=== PATIENT | female | born 1945 | race Caucasian/White ===

== ENCOUNTER → 2016-11-30 | Outpatient (CLI) | payer MEDICARE ==
[~2016-11-30] MED LIST: REGADENOSON INJ 0.4 MG/5 ML DISP.SYRIN IV ONE
--- NOTE | 2016-11-30 19:19 | DRAGON STRESS TEST REPORT ---
Intravenous Lexiscan Cardiolite stress test using single photon emmision computerized tomography. Date of procedure: 11/30/2016. Ordering Provider: Dr. Aimee Allred. Primary Care Physician: Dr. Angela Wilcox. Indication: Syncope. Coronary risk factors: Age, abnormal EKG, hypertension, dyslipidemia, family history of coronary artery disease, and tobacco abuse disorder. Resting EKG: Sinus Rhythm. T inversion in leads V1 to V4. Stress EKG: No changes of ischemia. The patient had no chest pain or discomfort, and there were no arrhythmias seen. The patient had transient shortness of breath which subsided after she drank Pepsi. Reason for termination: Protocol. Conclusions: Normal EKG and hemodynamic response to IV Lexiscan. Nuclear data: At rest the patient was given 9.11 millicuries of technetium 99m sestamibi injected intravenously. As per protocol rest non gated SPECT images were obtained. Subsequently the patient was given intravenous Lexiscan at a dose of 0.4 mg in 5 mL intravenously, followed by flush with normal saline. Subsequently the stress dose of 32.3 millicuries of technetium 99m sestamibi was injected intravenously. As per protocol stress gated images were obtained. Nuclear interpretation: Review of images showed that there is significant motion artifact. In spite of this all segments of the myocardium had normal perfusion at rest, and normal perfusion post stress with IV Lexiscan. All segments of the myocardium had normal motion, contraction, and thickening by gated study. T. I D. ratio was normal at 1.18. Computer read rest, and stress left ventricular ejection fraction were 71 %, and 73 %, respectively. Conclusion: 1. There is no scintigraphic evidence of Lexiscan induced myocardial ischemia. 2. There is no scintigraphic evidence of myocardial infarction/scar. Recommendations: 1.Aggressive risk factor modification, and treating the underlying co- morbidities. 2. Correlate Clinically. MTDD
== END ==
LOC: RAD 07:24
PROVIDERS: ATTEND Specialist
DX: R55 Syncope and collapse (principal)
CPT/HCPCS: 93017; 78452; A9500; J2785; Q9969

== ENCOUNTER 2016-12-05 15:58 | Emergency (ER) | payer MEDICARE ==
--- NOTE | 2016-12-05 16:18 | ER Document Report ---
ED Medical Screen (RME) - General Chief Complaint: Laceration Stated Complaint: LACERATION TO RIGHT SECOND DIGIT Time seen by provider: 16:16 Mode of Arrival: Wheelchair Information source: Patient Notes: 71-year-old female presents to ED for laceration to the right index finger. Her tetanus shot is up-to-date. No active bleeding at this moment. Slipped when she was trying to remove candle wax. I have greeted and performed a rapid initial assessment of this patient. A comprehensive ED assessment and evaluation of the patient, analysis of test results and completion of medical decision making process will be conducted by an additional ED providers. TRAVEL OUTSIDE OF THE [place] IN LAST 30 DAYS: No - Related Data Allergies/Adverse Reactions: No Known Allergies Allergy (Verified 10/22/16 12:29) Past Medical History - Past Medical History Cardiac Medical History: Reports: Hx Coronary Artery Disease, Hx Hypercholesterolemia, Hx Hypertension Denies: Hx Heart Attack Musculoskeltal Medical History: Reports Hx Arthritis, Reports Hx Musculoskeletal Trauma - right arm Psychiatric Medical History: Reports: Hx Anxiety, Hx Depression Past Surgical History: Reports: Hx Adenoidectomy, Hx Hysterectomy, Hx Oral Surgery - wisdom teeth, Hx Orthopedic Surgery - left shoulder, Hx Tonsillectomy , Other - eye - Immunizations Hx Diphtheria, Pertussis, Tetanus Vaccination: Yes Physical Exam - Vital signs Vitals: Temp Pulse Resp BP Pulse Ox 97.9 F 74 16 174/96 H 97 12/05/16 16:13 12/05/16 16:13 12/05/16 16:13 12/05/16 16:13 12/05/16 16:13 Course - Vital Signs Vital signs: Temp Pulse Resp BP Pulse Ox 97.9 F 74 16 174/96 H 97 12/05/16 16:13 12/05/16 16:13 12/05/16 16:13 12/05/16 16:13 12/05/16 16:13
[2016-12-05] MEDS ORDERED: LIDOCAINE 1% INJ-PF (10 MG/ML) 30 ML SDV INJ ONE (18:38)
--- NOTE | 2016-12-05 19:51 | ER Document Report ---
ED General - General Chief Complaint: Laceration Stated Complaint: LACERATION TO RIGHT SECOND DIGIT Time seen by provider: 18:30 Mode of Arrival: Wheelchair Information source: Patient Notes: 71-year-old female was working in her kitchen and cut herself with a knife on her right index finger roughly 1:00 this afternoon. She reports she had copious bleeding at the time but it seems to stop with direct pressure now. She states she did not injure anything else. She does not note any difficulty with the use of her finger or numbness to the finger. She reports taking aspirin but no other anticoagulation Physical Exam: General: Alert, appears well. HEENT: Normocephalic. Atraumatic. PERRLA. Extraocular movements intact. Oropharynx clear. Neck: Supple. Non-tender. Respiratory: No respiratory distress. Clear and equal breath sounds bilaterally. Cardiovascular: Regular rate and rhythm. Abdominal: Normal Inspection. Soft, non-tender. No distension. Normal Bowel Sounds. Extremities: Moves all four extremities. Right index finger has a 4 cm flap-type laceration over the proximal phalanx to the thumb side. She demonstrates full active range of motion at the MCP PIP and DIP joints. She has brisk upper refill the finger. There is ecchymosis and swelling proximal to the laceration site. Other fingers have good range of motion without discomfort she has 2+ radial and ulnar pulses. Neurological: Speech clear mentation normal Psychological: Normal affect. Normal Mood. Skin: Warm. Dry. Normal color. TRAVEL OUTSIDE OF THE [place] IN LAST 30 DAYS: No - Related Data Allergies/Adverse Reactions: No Known Allergies Allergy (Verified 10/22/16 12:29) Past Medical History - General Information source: Patient - Social History Smoking Status: Current Every Day Smoker Family History: CAD Patient has suicidal ideation: No Patient has homicidal ideation: No - Past Medical History Cardiac Medical History: Reports: Hx Coronary Artery Disease, Hx Hypercholesterolemia, Hx Hypertension Denies: Hx Heart Attack Renal/ Medical History: Denies: Hx Peritoneal Dialysis Musculoskeltal Medical History: Reports Hx Arthritis, Reports Hx Musculoskeletal Trauma - right arm Psychiatric Medical History: Reports: Hx Anxiety, Hx Depression Past Surgical History: Reports: Hx Adenoidectomy, Hx Hysterectomy, Hx Oral Surgery - wisdom teeth, Hx Orthopedic Surgery - left shoulder, Hx Tonsillectomy , Other - eye - Immunizations Hx Diphtheria, Pertussis, Tetanus Vaccination: Yes Review of Systems - Review of Systems Constitutional: denies: Chills, Fever EENT: denies: Ear pain, Throat pain Cardiovascular: denies: Chest pain Respiratory: denies: Cough, Short of breath Gastrointestinal: denies: Nausea, Vomiting Genitourinary: denies: Burning, Dysuria Female Genitourinary: Post menopausal Musculoskeletal: denies: Back pain Hematologic/Lymphatic: denies: Swollen glands Neurological/Psychological: denies: Weakness, Numbness Physical Exam - Vital signs Vitals: Temp Pulse Resp BP Pulse Ox 97.9 F 74 16 174/96 H 97 12/05/16 16:13 12/05/16 16:13 12/05/16 16:13 12/05/16 16:13 12/05/16 16:13 Course - Re-evaluation Re-evalutation: 12/05/16 19:52 Laceration sutured without difficulty. Patient will return to emergency department or her provider in one week for suture removal - Vital Signs Vital signs: Temp Pulse Resp BP Pulse Ox 97.9 F 74 16 174/96 H 97 12/05/16 16:15 12/05/16 16:15 12/05/16 16:15 12/05/16 16:15 12/05/16 16:15 Procedures - Laceration/Wound Repair Right Finger 2nd digit Time completed: 19:30 Wound length (cm): 4 Wound's Depth, Shape: Flap Laceration pre-procedure: Betadine prep applied, Sterile drapes applied Anesthetic type: 1% Lidocaine Volume Anesthetic (mLs): 2 Wound explored: Clean Irrigated w/ Saline (mLs): 50 Wound Debrided: Minimal Suture Size/Type: 4:0 Number of Sutures: 8 Layer Closure?: No Post-procedure wound care: Sterile dressing applied Post-procedure NV exam normal: No Complications: No Notes: 12/05/16 19:51 This is a flap-type laceration which was deeper more proximally. I believe this transected one of the veins accounting for the considerable bleeding but there was no pulsatile bleeding to suggest arterial involvement. Base of the wound was identified and no tendon or bony involvement was present. Wound was close enough to the digital nerve and elected to provide local anesthetic. Patient had persistent numbness to the finger after procedure which I think is due to the anesthesia. Patient had good hemostasis postprocedure and no complications Discharge - Discharge Clinical Impression: Laceration Condition: Stable Disposition: HOME, SELF-CARE Additional Instructions: Laceration Care Your laceration has been sutured to keep the skin edges aligned during healing. The time of suture removal depends on the nature and location of your cut. Please follow the care instructions the doctor has outlined for you and return for further care, according to the schedule you've been given. Keep the wound and dressing clean. Unless you were told otherwise, you may shower daily, blotting the wound dry with a clean, unused towel. At other times, If the dressing gets wet or blood soaked, remove it and blot the wound dry, then reapply a new dressing. Unless you were instructed otherwise, dressings should be changed at least daily. If any signs of infection occur (swelling, redness, increasing tenderness, red streaks, tender lumps in the armpit or groin above the laceration, or fever) , see the doctor immediately. Return to emergency department or see your doctor in 1 week for suture removal
[2016-12-05 20:33] VITALS: BP 179/104
== END 2016-12-05 20:36 | disposition home or self-care (01) ==
LOC: ER 15:58
PROC: 0HQFXZZ Repair Right Hand Skin, External Approach (ICD-10-PCS; principal; 2016-12-05)
DX: S61.210A Laceration without foreign body of right index finger without damage to nail, initial encounter (principal); W26.0XXA Contact with knife, initial encounter; F17.200 Nicotine dependence, unspecified, uncomplicated; I25.10 Atherosclerotic heart disease of native coronary artery without angina pectoris; E78.00 Pure hypercholesterolemia, unspecified; I10 Essential (primary) hypertension; Z90.710 Acquired absence of both cervix and uterus
CPT/HCPCS: 99282

== ENCOUNTER 2016-12-12 11:58 | Emergency (ER) | payer MEDICARE ==
--- NOTE | 2016-12-12 12:40 | ER Document Report ---
ED Medical Screen (RME) - General Chief Complaint: Suture Removal Stated Complaint: STITCH REMOVAL Notes: here for suture removal. lac on 12/05 I have greeted and performed a rapid initial assessment of this patient. A comprehensive ED assessment and evaluation of the patient, analysis of test results and completion of the medical decision making process will be conducted by additional ED providers. TRAVEL OUTSIDE OF THE [place] IN LAST 30 DAYS: No - Related Data Allergies/Adverse Reactions: No Known Allergies Allergy (Verified 12/12/16 12:38) Past Medical History - Past Medical History Cardiac Medical History: Reports: Hx Coronary Artery Disease, Hx Hypercholesterolemia, Hx Hypertension Denies: Hx Heart Attack Renal/ Medical History: Denies: Hx Peritoneal Dialysis Musculoskeltal Medical History: Reports Hx Arthritis, Reports Hx Musculoskeletal Trauma - right arm Psychiatric Medical History: Reports: Hx Anxiety, Hx Depression Past Surgical History: Reports: Hx Adenoidectomy, Hx Hysterectomy, Hx Oral Surgery - wisdom teeth, Hx Orthopedic Surgery - left shoulder, Hx Tonsillectomy , Other - eye - Immunizations Hx Diphtheria, Pertussis, Tetanus Vaccination: Yes Physical Exam - Vital signs Vitals: Temp Pulse Resp BP Pulse Ox 98.1 F 80 16 157/86 H 95 12/12/16 12:25 12/12/16 12:25 12/12/16 12:25 12/12/16 12:25 12/12/16 12:25 Course - Vital Signs Vital signs: Temp Pulse Resp BP Pulse Ox 98.1 F 80 16 157/86 H 95 12/12/16 12:25 12/12/16 12:25 12/12/16 12:25 12/12/16 12:25 12/12/16 12:25
--- NOTE | 2016-12-12 14:08 | ER Document Report ---
HPI - HPI Patient complains to provider of: suture removal Onset: Other - 7 datys Quality of pain: No pain Pain Level: 0 Context: 71 yo female here for suture removal right index finger. Sutured 1 week ago and told to return to get the stitches out. NO problems Associated Symptoms: None Exacerbated by: Denies Relieved by: Denies Similar symptoms previously: No Recently seen / treated by doctor: Yes - ROS ROS below otherwise negative: Yes Systems Reviewed and Negative: Yes All other systems reviewed and negative - DERM Skin Color: Normal Past Medical History - General Information source: Patient - Social History Smoking Status: Never Smoker Chew tobacco use (# tins/day): No Frequency of alcohol use: None Drug Abuse: None Family History: CAD Patient has suicidal ideation: No Patient has homicidal ideation: No - Past Medical History Cardiac Medical History: Reports: Hx Coronary Artery Disease, Hx Hypercholesterolemia, Hx Hypertension Renal/ Medical History: Denies: Hx Peritoneal Dialysis Musculoskeltal Medical History: Reports Hx Arthritis, Reports Hx Musculoskeletal Trauma - right arm Psychiatric Medical History: Reports: Hx Anxiety, Hx Depression Past Surgical History: Reports: Hx Adenoidectomy, Hx Hysterectomy, Hx Oral Surgery - wisdom teeth, Hx Orthopedic Surgery - left shoulder, Hx Tonsillectomy , Other - eye - Immunizations Hx Diphtheria, Pertussis, Tetanus Vaccination: Yes Vertical Provider Document - CONSTITUTIONAL Agree With Documented VS: Yes Exam Limitations: No Limitations General Appearance: No Apparent Distress - INFECTION CONTROL TRAVEL OUTSIDE OF THE [place] IN LAST 30 DAYS: No - HEENT HEENT: Normocephalic - RESPIRATORY O2 Sat by Pulse Oximetry: 95 - MUSCULOSKELETAL/EXTREMETIES Musculoskeletal/Extremeties: MAEW, FROM, Eccymosis Notes: healed v cut dorsal right index finger-proximal - NEURO Level of Consciousness: Awake, Alert Motor/Sensory: No Motor Deficit, No Sensory Deficit - DERM Integumentary: Warm, Dry, Laceration - see above Course - Re-evaluation Re-evalutation: 12/12/16 14:07 Suture removal with Steri-Strips to provide 3 more days of wound edge closure strength. 12/12/16 14:07 - Vital Signs Vital signs: Temp Pulse Resp BP Pulse Ox 98.1 F 80 16 157/86 H 95 12/12/16 12:25 12/12/16 12:25 12/12/16 12:25 12/12/16 12:25 12/12/16 12:25 Discharge - Discharge Clinical Impression: right index finger suture removal, steri stip for strength Condition: Good Disposition: HOME, SELF-CARE Instructions: Care of Steri-Strip Closure ([facility]) Additional Instructions: keep the strips dry and intact for 3 more days to er any concerns Referrals: PRISCILA ADAMS MD [Primary Care Provider] - Follow up as needed
[2016-12-12 15:00] VITALS: BP 168/88
== END 2016-12-12 14:50 | disposition home or self-care (01) ==
LOC: ER 11:58
DX: Z48.02 Encounter for removal of sutures (principal)

== ENCOUNTER → 2017-04-12 | Outpatient (CLI) | payer MEDICARE ==
--- NOTE | 2017-04-12 14:37 | RADIOLOGY REPORT (SQ) ---
EXAM DESCRIPTION: CT LUNG CANCER SCREENING COMPLETED DATE/TIME: 04/12/2017 1:28 pm REASON FOR STUDY: NICOTINE DEPENDENCE R26.0 ATAXIC GAIT Z72.0 TOBACCO USE F17.210 NICOTINE DEPEND ENCE, CIGARETTES, UNCOMPLICATED Has the patient had a Chest CT scan within the past year? No Was the patient offered tobacco cessation counseling? Yes Was the patient engaged in shared decision making for this test? Yes Does the patient have signs or symptoms of Lung Cancer? No Is the patient a smoker? Yes How many packs per year? 180 How many years since quitting smoking? Not applicable Patients age: 71 COMPARISON: None. TECHNIQUE: Low Dose CT scan performed of the chest without intravenous contrast for purposes of scre ening for lung cancer. Images reviewed with lung, soft tissue and bone windows. Reconstructed coron al and sagittal MPR images reviewed. All images stored on PACS. All CT scanners at this facility use dose modulation, iterative reconstruction, and/or weight based d osing when appropriate to reduce radiation dose to as low as reasonably achievable (ALARA). [facility]: Dose Right [facility]: CareDose [facility]: Dose Right [facility]: Teradose 4D [facility]: [employer] RADIATION DOSE: 1.94 mGy. . LIMITATIONS: No technical limitations. FINDINGS: LUNGS AND PLEURA: Benign calcified granuloma left upper lobe. No pleural effusions or c alcifications. No pneumothorax. Moderate obstructive lung disease with enlarged airspaces. HILAR AND MEDIASTINAL STRUCTURES: No identified masses. No abnormal nodes. HEART AND VASCULAR STRUCTURES: No aortic aneurysm. No pericardial effusion. No cardiac devices. CORONARY ARTERY CALCIFICATIONS: Mild to moderate calcifications. UPPER ABDOMEN: No significant findings. THYROID AND OTHER SOFT TISSUES: No masses. No adenopathy. BONY STRUCTURES: Old left 12th rib fracture. Mild upper endplate chronic appearing depression of T12 . OTHER: No other significant findings. IMPRESSION: NO SIGNIFICANT FINDING ON NON-CONTRASTED CHEST CT. NO OTHER CLINICALLY SIGNIFICANT/POTENTIALLY CLINICALLY SIGNIFICANT FINDINGS LUNGRADS: LUNGRADS: 1 NEGATIVE. NO NODULES, OR DEFINITELY BENIGN NODULES MODIFIER: NONE RECOMMENDATION: Continue annual screening with LDCT in 12 months. COMMENT: CRITERIA: No lung nodules. Nodules with specific calcifications: Complete, central, popcorn, concentric rings and fat containin g nodules. TECHNICAL DOCUMENTATION: JOB ID: [id number] Quality ID # [id number]: Final reports with documentation of one or more dose reduction techniques (e.g., Au tomated exposure control, adjustment of the mA and/or kV according to patient size, use of iterative reconstruction technique) 2010 [employer]
--- NOTE | 2017-04-12 15:01 | RADIOLOGY REPORT (SQ) ---
EXAM DESCRIPTION: MRI HEAD WITHOUT COMPLETED DATE/TIME: 04/12/2017 2:42 pm REASON FOR STUDY: ATAXIC GAIT R26.0 ATAXIC GAIT Z72.0 TOBACCO USE F17.210 NICOTINE DEPENDENCE, CI GARETTES, UNCOMPLICATED COMPARISON: CT dated 10/11/2016. TECHNIQUE: Multiplanar imaging includes non-contrasted T1, T2, FLAIR, and Diffusion with ADC map seq uences. Images stored on PACS. LIMITATIONS: None. FINDINGS: ANATOMY: No anomalies. Normal vascular flow voids. Pituitary fossa normal. CSF SPACES: Normal in size and contour. No hemorrhage. CEREBRUM: A few high-signal intensity lesions scattered throughout the white matter on FLAIR imaging with distribution suggesting chronic micro-vascular ischemic change. Sulci and gyri normal in size a nd contour. No evidence of hemorrhage, mass or extraaxial fluid collection. POSTERIOR FOSSA: No signal alteration. No hemorrhage. No edema, masses or mass effect. Internal salma tory canals, cerebello-pontine angles, mastoids normal. DIFFUSION: Negative for acute or sub-acute infarction. ORBITS: No masses. Globes normal. PARANASAL SINUSES: No fluid levels. Mucosa normal. OTHER: No other significant finding. IMPRESSION: MINIMAL MICROVASCULAR ISCHEMIC CHANGE. OTHERWISE NORMAL STUDY. TECHNICAL DOCUMENTATION: JOB ID: [id number] [employer]- All Rights Reserved
== END ==
LOC: RAD 12:59
PROVIDERS: ATTEND Family Medicine
DX: R26.0 Ataxic gait (principal); Z12.2 Encounter for screening for malignant neoplasm of respiratory organs; F17.210 Nicotine dependence, cigarettes, uncomplicated
CPT/HCPCS: 70551; G0297

== ENCOUNTER 2017-04-20 07:35 | Day surgery (SDC) | payer MEDICARE ==
[~2017-04-20 07:35] MED LIST changes: +KETOROLAC TROMETHAMINE 0.45% 4 DROP/0.4 ML DROPERETTE OS PRN; +MIDAZOLAM 2 MG/2 ML INJ ONE; -REGADENOSON INJ 0.4 MG/5 ML DISP.SYRIN IV ONE
[2017-04-20] MEDS: CYCLOPENTOLATE 0.2%/PHENYLEPHRINE 1% OPH SOLN 2 ML OS PRN ×3 (08:09→08:38)
[2017-04-20] MEDS: TROPICAMIDE 1% OPH SOLN 3 ML OS PRN ×3 (08:10→08:39)
[2017-04-20] MEDS: BESIFLOXACIN HCL 0.6% OPH SUSP 5 ML BOTTLE OS PRN ×4 (08:11→09:20)
[2017-04-20] MEDS: TETRACAINE HCL 0.5% OPH SOLN 2 ML OS PRN ×3 (08:13→08:53)
[2017-04-20] MEDS: EPINEPHRINE INJ/PF 1 MG/1 ML AMPULE ONE ×2 (09:07)
[2017-04-20] MEDS: LIDOCAINE 1% INJ-PF (10 MG/ML) 30 ML SDV ONE ×2 (09:07)
[2017-04-20] MEDS: CHONDR SU A NA/HYALUR INTRAOC KIT (SURGICARE) ONE ×2 (09:07)
--- NOTE | 2017-04-24 12:09 | [facility] OPERATIVE REPORT E ---
[facility] Operative Report NAME: KENDALL GILBERT AGE: 71Y DATE OF SURGERY: 04/20/2017 ROOM: PREOPERATIVE DIAGNOSIS: CATARACT, LEFT EYE. POSTOPERATIVE DIAGNOSIS: CATARACT, LEFT EYE. OPERATION: Cataract extraction with intraocular lens implant of the left eye. SURGEON: CORNELIUS DACOSTA M.D. ANESTHESIA: Topical. TISSUE REMOVED OR ALTERED: PROCEDURE: After obtaining appropriate consent, the patient's left eye was prepped and draped in sterile fashion as well as the surgeon in a sterile manner and cataract surgery was started. First a paracentesis blade was used to make a small side-port incision. Viscoelastic was used to inflate the anterior chamber. Next a 2.4 mm incision was made with the paracentesis blade. A continuous capsulorrhexis incision was made using a cystotome and Utrata forceps. Following this hydrodissection was carried out to make the lens fully loose and mobile and it was rotated 90 degrees. Following this, a qrjjwe-[id number]-[id number] technique was used to phacoemulsify the lens with a CDE of 10.93. The remaining cortex was removed with irrigation/aspiration. Provisc was instilled into the capsular bag to inflate the bag. A SN60WF, 15.5 SN60WF diopter lens was placed. The remaining viscoelastic material was removed with irrigation/aspiration. Following this, a 10-0 nylon suture was used to close the incision and it was found to be watertight. Vigamox was instilled in the eye and a protective shield was placed over the eye. The patient returned to the postoperative recovery in stable condition. DICTATING PHYSICIAN: CORNELIUS DACOSTA M.D. [id number] PHY#: [id number] ID: [id number] JOB#: [id number] ACCT: [id number] cc:CORNELIUS DACOSTA M.D. >
--- NOTE | 2017-04-24 12:09 | [facility] DISCHARGE SUMMARY E ---
[facility] Discharge Summary NAME: KENDALL GILBERT AGE: 71Y ADMITTED: 04/20/2017 DISCHARGED: 04/20/2017 HISTORY: This is a 71-year-old patient who underwent cataract extraction of her left eye. DIAGNOSIS: Cataract, left eye. She underwent surgery for having difficulty seeing small print and unable to sew. She should be on a regular diet. No bending at his waist. No heavy lifting. She should use her Besivance, Ilevro, and Durezol at 3 p.m. and 8 p.m. and sleep with a rigid shield and I will see her for her one day postoperative tomorrow. DICTATING PHYSICIAN: CORNELIUS DACOSTA M.D. [id number] PHY#: [id number] ID: [id number] JOB#: [id number] ACCT: [id number] cc:CORNELIUS DACOSTA M.D. >
== END 2017-04-20 10:03 | disposition home or self-care (01) ==
LOC: SC 07:35
PROVIDERS: ATTEND Internal Medicine
PROC: 08RK3JZ Replacement of Left Lens with Synthetic Substitute, Percutaneous Approach (ICD-10-PCS; principal; 2017-04-20 09:00)
DX: H25.12 Age-related nuclear cataract, left eye (principal); H16.141 Punctate keratitis, right eye; H26.491 Other secondary cataract, right eye; H52.4 Presbyopia; Z96.1 Presence of intraocular lens; H43.813 Vitreous degeneration, bilateral; I10 Essential (primary) hypertension; E78.00 Pure hypercholesterolemia, unspecified; F17.210 Nicotine dependence, cigarettes, uncomplicated; Z79.82 Long term (current) use of aspirin; Z79.899 Other long term (current) drug therapy
CPT/HCPCS: 66984; V2632; J2250; J3490 ×2; A9270; J0171; 142

== ENCOUNTER 2017-07-01 18:03 | Emergency (ER) | payer MEDICARE ==
[2017-07-01 18:11] VITALS: BP 130/62
[2017-07-01] MEDS ORDERED: ACETAMINOPHEN 325 MG TABLET PO ONE (18:11)
--- NOTE | 2017-07-01 18:35 | ER Document Report ---
ED Fall - General Chief Complaint: Fall Stated Complaint: FALL/RIGHT KNEE INJURY Time Seen by Provider: 07/01/17 18:31 Notes: The patient is a 71-year-old female who slipped on water earlier today and fell on her right knee. She also noticed some small abrasions of her right elbow and left foot, but these are not painful. Her tetanus is up-to-date. She denies numbness, tingling, blood thinner use, head injury, neck pain or syncope. TRAVEL OUTSIDE OF THE [place] IN LAST 30 DAYS: No - Related data Allergies/Adverse Reactions: No Known Allergies Allergy (Verified 12/12/16 12:38) Past Medical History - General Information source: Patient - Social History Smoking Status: Never Smoker Family History: CAD - Past Medical History Cardiac Medical History: Reports: Hx Coronary Artery Disease, Hx Hypercholesterolemia, Hx Hypertension Denies: Hx Heart Attack Pulmonary Medical History: Denies: Hx Asthma Neurological Medical History: Denies: Hx Cerebrovascular Accident, Hx Seizures Renal/ Medical History: Denies: Hx Peritoneal Dialysis GI Medical History: Denies: Hx Hepatitis, Hx Hiatal Hernia, Hx Ulcer Musculoskeltal Medical History: Reports Hx Arthritis, Reports Hx Musculoskeletal Trauma - right arm Psychiatric Medical History: Reports: Hx Anxiety, Hx Depression Infectious Medical History: Denies: Hx Hepatitis Past Surgical History: Reports: Hx Adenoidectomy, Hx Hysterectomy, Hx Oral Surgery - wisdom teeth, Hx Orthopedic Surgery - left shoulder, Hx Tonsillectomy , Other - eye. Denies: Hx Mastectomy, Hx Open Heart Surgery, Hx Pacemaker - Immunizations Hx Diphtheria, Pertussis, Tetanus Vaccination: Yes Review of Systems - Review of Systems Notes: REVIEW OF SYSTEMS: CONSTITUTIONAL: -fevers, -chills EENT: -eye pain, -difficulty swallowing, -nasal congestion CARDIOVASCULAR:-chest pain, -syncope. RESPIRATORY: -cough, -SOB GASTROINTESTINAL: -abdominal pain, - nausea, -vomiting, -diarrhea GENITOURINARY: -dysuria, -hematuria MUSCULOSKELETAL: +right knee pain, -back pain, -neck pain SKIN: +abrasions HEMATOLOGIC: -easy bruising or bleeding. LYMPHATIC: -swollen, enlarged glands. NEUROLOGICAL: -altered mental status or loss of consciousness, -headache, - neurologic symptoms PSYCHIATRIC: -anxiety, -depression. ALL OTHER SYSTEMS REVIEWED AND NEGATIVE. Physical Exam - Vital signs Vitals: Temp Pulse Resp BP Pulse Ox 98 F 71 18 130/62 H 95 07/01/17 18:08 07/01/17 18:08 07/01/17 18:08 07/01/17 18:08 07/01/17 18:08 - Notes Notes: PHYSICAL EXAMINATION: GENERAL: Well-appearing, well-nourished and in no acute distress. HEAD: Atraumatic, normocephalic. EYES: Pupils equal round and reactive to light, extraocular movements intact, sclera anicteric, conjunctiva are normal. ENT: nares patent, oropharynx clear without exudates. Moist mucous membranes. NECK: Normal range of motion, supple without lymphadenopathy LUNGS: Breath sounds clear to auscultation bilaterally and equal. No wheezes rales or rhonchi. HEART: Regular rate and rhythm without murmurs ABDOMEN: Soft, nontender, normoactive bowel sounds. No guarding, no rebound. No masses appreciated. EXTREMITIES: Right knee effusion and tenderness. Unable to extend knee or lift leg off table. Non-tender right elbow and left foot. Strong distal pulses. No cyanosis. NEUROLOGICAL: Cranial nerves grossly intact. Normal speech, normal gait. Normal sensory and motor exams. PSYCH: Normal mood, normal affect. SKIN: Superficial abrasions of her right elbow and left medial foot. Course - Re-evaluation Re-evalutation: Patient with evidence of patella fracture. She is having difficulty extending her lower leg and there is concern for disruption of her suprapatellar and infrapatellar tendon. Patient placed in knee immobilizer and provided crutches. She will follow-up with orthopedics this week for further evaluation and treatment. - Vital Signs Vital signs: Temp Pulse Resp BP Pulse Ox 98 F 71 18 130/62 H 95 07/01/17 18:08 07/01/17 18:08 07/01/17 18:08 07/01/17 18:08 07/01/17 18:08 - Diagnostic Test Radiology reviewed: Image reviewed, Reports reviewed Radiology results interpreted by me: Right knee x-ray: Acute comminuted patella fracture Discharge - Discharge Clinical Impression: Patellar fracture Qualifiers: Encounter type: initial encounter Fracture type: closed Fracture morphology: comminuted Fracture alignment: nondisplaced Laterality: right Qualified Code(s) : S82.044A - Nondisplaced comminuted fracture of right patella, initial encounter for closed fracture Condition: Stable Disposition: HOME, SELF-CARE Additional Instructions: Keep your knee in the splint, use crutches and follow-up with orthopedics tomorrow. Fractured Patella You have broken the kneecap (patella). Mild fractures can be treated with splinting. Serious fractures (those that split the kneecap so the thigh muscle and kneecap tendon aren't connected) usually need surgery. The entire knee will swell and bulge with fluid. There may be a lot of bruising. The knee will be splinted. Apply ice packs, and elevate the leg. You shouldn't walk on the leg at first. After a couple of days, you can walk in the splint if it doesn't hurt. Call the doctor at once if there is severe swelling, increasing pain, numbness, or other alarming symptoms. Prescriptions: Hydrocodone/Acetaminophen [[place] 5-325 mg Tablet] 1 tab PO Q6H PRN #9 tablet PRN Reason: Referrals: PRISCILA ADAMS MD [Primary Care Provider] - Follow up as needed WILTON CORONADO MD [ACTIVE STAFF] - Follow up as needed
[2017-07-01] MEDS ORDERED: ACETAMINOPHEN 325 MG TABLET ONE (18:38)
--- NOTE | 2017-07-01 19:20 | RADIOLOGY REPORT (SQ) ---
EXAM DESCRIPTION: KNEE RIGHT 4 VIEWS COMPLETED DATE/TIME: 07/01/2017 6:57 pm REASON FOR STUDY: right knee pain COMPARISON: None. NUMBER OF VIEWS: Four views. TECHNIQUE: AP, lateral, and both oblique radiographic images acquired of the right knee. LIMITATIONS: None. FINDINGS: MINERALIZATION: Normal. BONES: Comminuted acute patellar fracture. Distal femur, proximal tibia and fibula intact. JOINT: Suprapatellar knee joint effusion SOFT TISSUES: Prepatellar soft tissue swelling. No radio-opaque foreign body. OTHER: No other significant finding. IMPRESSION: Acute comminuted patellar fracture TECHNICAL DOCUMENTATION: JOB ID: [id number] [employer]- All Rights Reserved
== END 2017-07-01 19:05 | disposition home or self-care (01) ==
LOC: ER 18:03
DX: S82.001A Unspecified fracture of right patella, initial encounter for closed fracture (principal); W01.0XXA Fall on same level from slipping, tripping and stumbling without subsequent striking against object, initial encounter
CPT/HCPCS: 99283; 73564; L1830; A9270

== ENCOUNTER 2017-07-05 09:54 | Day surgery (SDC) | payer MEDICARE ==
[~2017-07-05 09:54] MED LIST changes: +CEFAZOLIN 2 GM/D5W RTU 2 GM/50 ML RTUPB IV PRN; -KETOROLAC TROMETHAMINE 0.45% 4 DROP/0.4 ML DROPERETTE OS PRN; -MIDAZOLAM 2 MG/2 ML INJ ONE
--- NOTE | 2017-07-05 10:20 | EKG REPORT ---
SEVERITY:- NORMAL ECG - SINUS RHYTHM : Confirmed by: Grace Underwood 05-Jul-2017 10:19:36
--- NOTE | 2017-07-05 10:37 | RADIOLOGY REPORT (SQ) ---
EXAM DESCRIPTION: CHEST SINGLE VIEW COMPLETED DATE/TIME: 07/05/2017 10:25 am REASON FOR STUDY: PREOP COMPARISON: CT lung cancer screening 04/12/2017 EXAM PARAMETERS: NUMBER OF VIEWS: One view. TECHNIQUE: Single frontal radiographic view of the chest acquired. RADIATION DOSE: NA LIMITATIONS: None. FINDINGS: LUNGS AND PLEURA: Lungs are hyperinflated and hyperlucent from obstructive disease. Stabl e calcified granuloma left upper lobe. No acute infiltrates. No pleural effusion. No pneumothorax. MEDIASTINUM AND HILAR STRUCTURES: No masses. Contour normal. HEART AND VASCULAR STRUCTURES: Stable mild cardiomegaly BONES: No acute findings. HARDWARE: None in the chest. OTHER: No other significant finding. IMPRESSION: Obstructive lung disease. No acute finding TECHNICAL DOCUMENTATION: JOB ID: [id number]
[2017-07-05 10:43] LABS: HEMATOCRIT 33.6 % (36.0-47.0); HEMOGLOBIN 11.5 g/dL (12.0-15.5); HGB HCT DIFFERENCE 0.9; MEAN CORPUSCULAR HEMOGLOBIN 31.9 pg (27.0-33.4); MEAN CORPUSCULAR HGB CONC 34.4 g/dL (32.0-36.0); MEAN CORPUSCULAR VOLUME 93 fl (80-97); RED BLOOD COUNT 3.62 10^6/uL (3.72-5.28); RED CELL DISTRIBUTION WIDTH 13.6 % (11.5-14.0); WHITE BLOOD COUNT 6.6 10^3/uL (4.0-10.5)
[2017-07-05] MEDS ORDERED: ALBUTEROL SULFATE 0.083% NEB 2.5 MG/3 ML AMPUL NEB ONE (11:04)
[2017-07-05 11:24] LABS: ANION GAP 5 (5-19); BLOOD UREA NITROGEN 9 mg/dL (7-20); CALCIUM 8.8 mg/dL (8.4-10.2); CARBON DIOXIDE 27 mmol/L (22-30); CHLORIDE 108 mmol/L (98-107); CREATININE RESULT 0.66 mg/dL (0.52-1.25); GLUCOSE 83 mg/dL (75-110); POTASSIUM 3.7 mmol/L (3.6-5.0); SODIUM 140.2 mmol/L (137-145)
[2017-07-05] MEDS ORDERED: MIDAZOLAM 2 MG/2 ML INJ ONE (12:55)
[2017-07-05] MEDS ORDERED: PROPOFOL INJ 200 MG/20 ML VIAL IV ONE (12:56)
[2017-07-05] MEDS ORDERED: FENTANYL CITRATE INJ/PF 100 MCG/2 ML AMPUL ONE (12:56)
[2017-07-05] MEDS ORDERED: PROMETHAZINE HCL INJ 25 MG/1 ML VIAL IV PRN ×2 (13:24)
[2017-07-05] MEDS ORDERED: FENTANYL CITRATE INJ/PF 100 MCG/2 ML AMPUL IV PRN ×3 (13:24)
[2017-07-05] MEDS ORDERED: DIPHENHYDRAMINE HCL 50 MG/ML VIAL IV PRN (13:24)
[2017-07-05] MEDS ORDERED: MORPHINE SULFATE 10 MG/ML INJ IV PRN (13:24)
[2017-07-05] MEDS ORDERED: MEPERIDINE HCL/PF INJ 25 MG/1 ML DISP.SYRIN IV PRN (13:24)
[2017-07-05] MEDS ORDERED: OXYCODONE-ACETAMINOPHEN 5-325 MG TABLET PO PRN ×2 (13:24)
[2017-07-05] MEDS ORDERED: BUPIVACAINE HCL 0.5%-EPI 1:200000 INJ/PF 30 ML VIAL ONE (13:33)
[2017-07-05] MEDS ORDERED: LIDOCAINE 2%/EPINEPHRINE INJ 20 ML VIAL ONE (13:33)
--- NOTE | 2017-07-05 14:09 | Operative Report ---
Operative Report DATE OF SURGERY: 07/05/17 PREOPERATIVE DIAGNOSIS: Right patella fracture OPERATION: Open reduction internal fixation right patella fracture SURGEON: WILTON CORONADO ANESTHESIA: Spinal ESTIMATED BLOOD LOSS: 50 PROCEDURE: With the patient supine on the operative table the right lower extremities prepped and draped in sterile fashion. The limb was elevated for exsanguination tourniquet inflated 350 torr. A standard midline incision is made over the patella and sharp dissection was carried incision down to the hematoma. The hematoma was evacuated. The articular surface of the patella are lined up. There appear to be at least 4 pieces of the patella 2 large ones in a proximal medial and distal lateral orientation and then fragmentation off both sides of this. Plan is to used to record cannulated 4.0 screws from distal to proximal To the 2 large pieces. Then this is reinforced using #5 FiberWire in a [id number] fashion. The capture of the comminution pieces a cerclage 5 FiberWire is then placed. The articular reduction and the fracture alignment is checked using fluoroscopy. The integrity of the repair is checked using direct visualization as the knee is flexed and extended. This point I am quite happy with the result. The tourniquet is deflated. The wound is irrigated. Wound is closed in layers with interrupted Vicryl followed by chalino. A sterile compressive dressing was applied and the patient's return to the PACU in satisfactory condition.
[2017-07-05] MEDS ORDERED: OXYCODONE HCL IR 5 MG TABLET PO PRN (14:49)
[2017-07-05] MEDS ORDERED: ONDANSETRON 4 MG TAB.RAPDIS SL PRN (14:49)
--- NOTE | 2017-07-05 16:04 | RADIOLOGY REPORT (SQ) ---
EXAM DESCRIPTION: NO CHG FLUORO; KNEE RIGHT 2 VIEWS COMPLETED DATE/TIME: 07/05/2017 3:28 pm REASON FOR STUDY: ORIF RT PATELLA ASSISTED WITH FLUORO IN OR S82.001A UNSP FRACTURE OF RIGHT PATELL A, INIT FOR CLOS FX COMPARISON: None. FLUOROSCOPY TIME: 0.2 minutes 4 images saved to PACS. TECHNIQUE: Intra-operative images acquired during surgical procedure to evaluate progress. NUMBER OF IMAGES: 4 LIMITATIONS: None. FINDINGS: Internal fixation of patellar fracture. 2 orthopedic screws. IMPRESSION: IMAGE(S) OBTAINED DURING PROCEDURE. COMMENT: Quality ID [id number]: Final reports for procedures using fluoroscopy that document radiation exp osure indices, or exposure time and number of fluorographic images (if radiation exposure indices are not available) Please consult full operative report of the attending physician for description of the procedure. TECHNICAL DOCUMENTATION: JOB ID: [id number] [employer]- All Rights Reserved
[2017-07-05 17:43] VITALS: BP 152/74
== END 2017-07-05 17:40 | disposition home or self-care (01) ==
LOC: OROUT 09:54
PROVIDERS: ATTEND Orthopaedic Surgery
PROC: 0QSD04Z Reposition Right Patella with Internal Fixation Device, Open Approach (ICD-10-PCS; principal; 2017-07-05 12:00)
DX: S82.001A Unspecified fracture of right patella, initial encounter for closed fracture (principal); X58.XXXA Exposure to other specified factors, initial encounter; I10 Essential (primary) hypertension; E78.5 Hyperlipidemia, unspecified; F32.9 Major depressive disorder, single episode, unspecified; Z79.899 Other long term (current) drug therapy; F17.210 Nicotine dependence, cigarettes, uncomplicated
CPT/HCPCS: 27524; 36415; 85027; 80048; 71010; 73560; 93005; 93010; 94640; L1830; C1713; C1769; J2250; J3490; J3010; J2704; A9270 ×2; J0690; 01392

== ENCOUNTER 2018-01-21 14:27 | Emergency (ER) | payer MEDICARE ==
--- NOTE | 2018-01-21 15:20 | ER Document Report ---
ED Medical Screen (RME) - General Chief Complaint: Ankle Injury Stated Complaint: RT ANKLE INJURY Time Seen by Provider: 01/21/18 15:18 Mode of Arrival: Wheelchair Information source: Patient Notes: This is a 72-year-old female with a history of syncope who presents to the emergency room with right ankle pain and swelling after syncopal episode in her kitchen. Patient denies any head injury, neck pain any chest pain. TRAVEL OUTSIDE OF THE [place] IN LAST 30 DAYS: No - Related Data Allergies/Adverse Reactions: No Known Allergies Allergy (Verified 01/21/18 14:28) Past Medical History - Social History Chew tobacco use (# tins/day): No Frequency of alcohol use: None Drug Abuse: None - Past Medical History Cardiac Medical History: Reports: Hx Hypercholesterolemia, Hx Hypertension Denies: Hx Coronary Artery Disease, Hx Heart Attack Pulmonary Medical History: Denies: Hx Asthma, Hx Bronchitis, Hx COPD, Hx Pneumonia Neurological Medical History: Denies: Hx Cerebrovascular Accident, Hx Seizures Renal/ Medical History: Denies: Hx Peritoneal Dialysis GI Medical History: Denies: Hx Hepatitis, Hx Hiatal Hernia, Hx Ulcer Musculoskeltal Medical History: Denies Hx Arthritis, Reports Hx Musculoskeletal Trauma - right arm Psychiatric Medical History: Reports: Hx Anxiety, Hx Depression Infectious Medical History: Denies: Hx Hepatitis Past Surgical History: Reports: Hx Adenoidectomy, Hx Hysterectomy, Hx Oral Surgery - wisdom teeth, Hx Orthopedic Surgery - left shoulder, Hx Tonsillectomy , Other - eye. Denies: Hx Mastectomy, Hx Open Heart Surgery, Hx Pacemaker - Immunizations Hx Diphtheria, Pertussis, Tetanus Vaccination: Yes Physical Exam - Vital signs Vitals: Temp Pulse Resp BP Pulse Ox 97.8 F 69 16 127/69 H 97 01/21/18 14:32 01/21/18 14:32 01/21/18 14:32 01/21/18 14:32 01/21/18 14:32 Course - Vital Signs Vital signs: Temp Pulse Resp BP Pulse Ox 97.8 F 69 16 127/69 H 97 01/21/18 14:32 01/21/18 14:32 01/21/18 14:32 01/21/18 14:32 01/21/18 14:32
--- NOTE | 2018-01-21 16:04 | RADIOLOGY REPORT (SQ) ---
EXAM DESCRIPTION: ANKLE RIGHT AP/LATERAL COMPLETED DATE/TIME: 01/21/2018 3:50 pm REASON FOR STUDY: right ankle swelling COMPARISON: None. NUMBER OF VIEWS: Three views. TECHNIQUE: AP, lateral, and oblique radiographic images acquired of the right ankle. LIMITATIONS: None. FINDINGS: MINERALIZATION: Normal. BONES: There is a mildly displaced fracture of the distal fibula. The fracture is approximately at t he level of the tibiotalar joint. JOINTS: A small joint effusion is present. SOFT TISSUES: Marked soft tissue swelling is present about the lateral malleolus OTHER: No other significant finding. IMPRESSION: Gaviria B or possibly Gaviria C fracture of the distal fibula. TECHNICAL DOCUMENTATION: JOB ID: [id number] [employer]- All Rights Reserved Reading location - IP/workstation name: [email or web address]
--- NOTE | 2018-01-21 16:05 | RADIOLOGY REPORT (SQ) ---
EXAM DESCRIPTION: CHEST SINGLE VIEW COMPLETED DATE/TIME: 01/21/2018 3:50 pm REASON FOR STUDY: syncope COMPARISON: 07/05/2017 EXAM PARAMETERS: NUMBER OF VIEWS: One view. TECHNIQUE: Single frontal radiographic view of the chest acquired. RADIATION DOSE: NA LIMITATIONS: None. FINDINGS: LUNGS AND PLEURA: No opacities, masses or pneumothorax. No pleural effusion. MEDIASTINUM AND HILAR STRUCTURES: No masses. Contour normal. HEART AND VASCULAR STRUCTURES: Heart normal in size. Normal vasculature. BONES: No acute findings. HARDWARE: None in the chest. OTHER: No other significant finding. IMPRESSION: NO ACUTE RADIOGRAPHIC FINDING IN THE CHEST. TECHNICAL DOCUMENTATION: JOB ID: [id number] [employer]- All Rights Reserved Reading location - IP/workstation name: [email or web address]
[2018-01-21 16:22] LABS: ABSOLUTE BASOPHILS # (AUTO) 0.1 10^3/uL (0.0-0.2); ABSOLUTE EOSINOPHILS # (AUTO) 0.1 10^3/uL (0.0-0.6); ABSOLUTE LYMPHOCYTES (AUTO) 2.1 10^3/uL (0.5-4.7); ABSOLUTE MONOCYTES (AUTO) 0.6 10^3/uL (0.1-1.4); ABSOLUTE NEUT (AUTO) 7.8 10^3/uL (1.7-8.2); BASOPHILS % (AUTO) 0.5 % (0-2); EOSINOPHILS % (AUTO) 0.8 % (0-6); HEMATOCRIT 46.4 % (36.0-47.0); HEMOGLOBIN 15.6 g/dL (12.0-15.5); LYMPHOCYTES % (AUTO) 19.9 % (13-45); MEAN CORPUSCULAR HEMOGLOBIN 31.3 pg (27.0-33.4); MEAN CORPUSCULAR HGB CONC 33.7 g/dL (32.0-36.0); MEAN CORPUSCULAR VOLUME 93 fl (80-97); MONOCYTES % (AUTO) 5.2 % (3-13); PLATELET COUNT 302 10^3/uL (150-450); RED CELL DISTRIBUTION WIDTH 14.3 % (11.5-14.0); SEGMENTED NEUTROPHILS % (AUTO) 73.6 % (42-78); TOTAL CELLS COUNTED % (AUTO) 100 %; WHITE BLOOD COUNT 10.6 10^3/uL (4.0-10.5)
[2018-01-21 16:39] LABS: ALANINE AMINOTRANSFERASE 22 U/L (9-52); ALBUMIN 4.9 g/dL (3.5-5.0); ALKALINE PHOSPHATASE 101 U/L (38-126); ANION GAP 13 (5-19); ASPARTATE AMINO TRANSFERASE 26 U/L (14-36); BILIRUBIN,DIRECT 0.2 mg/dL (0.0-0.4); BILIRUBIN,TOTAL 0.5 mg/dL (0.2-1.3); BLOOD UREA NITROGEN 16 mg/dL (7-20); CALCIUM 10.2 mg/dL (8.4-10.2); CARBON DIOXIDE 27 mmol/L (22-30); CHLORIDE 104 mmol/L (98-107); CREATINE KINASE 83 U/L (30-135); GLUCOSE 88 mg/dL (75-110); POTASSIUM 4.4 mmol/L (3.6-5.0); SODIUM 143.5 mmol/L (137-145); TOTAL PROTEIN 7.9 g/dL (6.3-8.2)
[2018-01-21 16:49] LABS: CREATINE KINASE MB 1.49 ng/mL (<4.55)
[2018-01-21 16:55] LABS: TROPONIN I < 0.012 ng/mL
[2018-01-21] MEDS ORDERED: FENTANYL CITRATE INJ/PF 100 MCG/2 ML AMPUL IV ONE (16:55)
--- NOTE | 2018-01-21 16:56 | ER Document Report ---
ED Extremity Problem, Lower - General Chief Complaint: Ankle Injury Stated Complaint: RT ANKLE INJURY Time Seen by Provider: 01/21/18 15:18 Mode of Arrival: Wheelchair Information source: Patient Notes: Patient is a 72-year-old female who presents to the ER today for right ankle pain after having a syncopal episode in her kitchen prior to arrival and falling , injuring the right ankle. She denies feeling any lightheadedness or dizziness before the syncopal episode. Patient states that she has had multiple syncopal episodes in the past, has been evaluated and even admitted to the hospital for >3 days to be fully evaluated for syncopal episodes. She states that for cardiac evaluations including stress tests and echocardiograms, neurology evaluations have been performed and all negative. Patient does not want to stay for workup for her syncope today. She denies any headache, blurred vision, chest pain, shortness of breath, nausea, vomiting, dizziness. TRAVEL OUTSIDE OF THE [place] IN LAST 30 DAYS: No - Related Data Allergies/Adverse Reactions: No Known Allergies Allergy (Verified 01/21/18 14:28) Past Medical History - General Information source: Patient - Social History Smoking Status: Current Every Day Smoker Chew tobacco use (# tins/day): No Frequency of alcohol use: None Drug Abuse: None Family History: CAD Patient has suicidal ideation: No Patient has homicidal ideation: No - Past Medical History Cardiac Medical History: Reports: Hx Hypercholesterolemia, Hx Hypertension Denies: Hx Coronary Artery Disease, Hx Heart Attack Pulmonary Medical History: Denies: Hx Asthma, Hx Bronchitis, Hx COPD, Hx Pneumonia Neurological Medical History: Denies: Hx Cerebrovascular Accident, Hx Seizures Renal/ Medical History: Denies: Hx Peritoneal Dialysis GI Medical History: Denies: Hx Hepatitis, Hx Hiatal Hernia, Hx Ulcer Musculoskeltal Medical History: Denies Hx Arthritis, Reports Hx Musculoskeletal Trauma - right arm Psychiatric Medical History: Reports: Hx Anxiety, Hx Depression Infectious Medical History: Denies: Hx Hepatitis Past Surgical History: Reports: Hx Adenoidectomy, Hx Hysterectomy, Hx Oral Surgery - wisdom teeth, Hx Orthopedic Surgery - left shoulder, Hx Tonsillectomy , Other - eye. Denies: Hx Mastectomy, Hx Open Heart Surgery, Hx Pacemaker - Immunizations Hx Diphtheria, Pertussis, Tetanus Vaccination: Yes Review of Systems - Review of Systems Constitutional: No symptoms reported EENT: No symptoms reported Cardiovascular: No symptoms reported Respiratory: No symptoms reported Gastrointestinal: No symptoms reported Genitourinary: No symptoms reported Female Genitourinary: No symptoms reported Musculoskeletal: See HPI Skin: No symptoms reported Hematologic/Lymphatic: No symptoms reported Neurological/Psychological: See HPI Physical Exam - Vital signs Vitals: Temp Pulse Resp BP Pulse Ox 97.8 F 69 16 127/69 H 97 01/21/18 14:32 01/21/18 14:32 01/21/18 14:32 01/21/18 14:32 01/21/18 14:32 - Notes Notes: PHYSICAL EXAMINATION: GENERAL: Well-appearing and in no acute distress. HEAD: Atraumatic, normocephalic. EYES: Pupils equal round and reactive to light, extraocular movements intact, sclera anicteric, conjunctiva are normal. NECK: Normal range of motion, supple without lymphadenopathy LUNGS: CTAB and equal. No wheezes rales or rhonchi. HEART: Regular rate and rhythm without murmurs EXTREMITIES: Tender to right lateral malleolus of the right ankle, edema, ecchymosis to the lateral malleolus, no pitting edema. No cyanosis. NEUROLOGICAL: Cranial nerves grossly intact. Normal sensory/motor exams. Good and equal strength bilaterally, Kernig and Brudzinski's signs negative, Romberg' s test normal, normal heel to eckert testing PSYCH: Normal mood, normal affect. SKIN: Warm, Dry, normal turgor, see extremities above Course - Re-evaluation Re-evalutation: 01/21/18 21:01 EKG reveals a normal sinus rhythm without evidence of ischemia or abnormality. Patient refuses workup for syncope today any further than lab work which is unremarkable today. Patient looks very well clinically and has normal vital signs. Patient has a Gaviria B fracture of the fibula on the right ankle, patient was placed in posterior ankle splint with a stirrup and will be given information for follow-up with orthopedic doctor. - Vital Signs Vital signs: Temp Pulse Resp BP Pulse Ox 98.1 F 76 16 130/75 H 100 01/21/18 18:13 01/21/18 18:13 01/21/18 18:13 01/21/18 18:13 01/21/18 18:13 - Laboratory Result Diagrams: 01/21/18 16:04 01/21/18 16:04 Laboratory results interpreted by me: 01/21/18 16:04 WBC 10.6 H Hgb 15.6 H RDW 14.3 H Procedures - Immobilization Right Ankle Time completed: 17:00 Pre-Proc Neuro Vasc Exam: Normal Immobilizer type: Posterior ankle Performed by: PCT Post-Proc Neuro Vasc Exam: Normal Alignment checked and good: Yes Discharge - Discharge Clinical Impression: Syncope and collapse Fracture of fibula, distal, closed Qualifiers: Encounter type: initial encounter Fracture morphology: unspecified fracture morphology Laterality: right Qualified Code(s): S82.831A - Other fracture of upper and lower end of right fibula, initial encounter for closed fracture Condition: Stable Disposition: HOME, SELF-CARE Instructions: Ice & Elevation ([facility]) Additional Instructions: Return immediately for any new or worsening symptoms. Follow up with primary care provider, call tomorrow to make followup appointment. Prescriptions: Hydrocodone/Acetaminophen [[place] 5-325 mg Tablet] 1 tab PO Q4 PRN #20 tablet PRN Reason: Referrals: PRISCILA ADAMS MD [Primary Care Provider] - Follow up as needed WILTON CORONADO MD [ACTIVE STAFF] - Follow up as needed
[2018-01-21 18:14] VITALS: BP 130/75
--- NOTE | 2018-01-21 21:35 | EKG REPORT ---
SEVERITY:- BORDERLINE ECG - SINUS RHYTHM BORDERLINE T ABNORMALITIES, ANT-LAT LEADS : Confirmed by: Grace Underwood 21-Jan-2018 21:35:16
== END 2018-01-21 18:14 | disposition home or self-care (01) ==
LOC: ER 14:27
PROC: 2W3QX1Z Immobilization of Right Lower Leg using Splint (ICD-10-PCS; principal; 2018-01-21)
DX: R55 Syncope and collapse (principal); S82.831A Other fracture of upper and lower end of right fibula, initial encounter for closed fracture; W18.30XA Fall on same level, unspecified, initial encounter; Y92.000 Kitchen of unspecified non-institutional (private) residence as the place of occurrence of the external cause; F17.200 Nicotine dependence, unspecified, uncomplicated; E78.00 Pure hypercholesterolemia, unspecified; I10 Essential (primary) hypertension; Z90.710 Acquired absence of both cervix and uterus
CPT/HCPCS: 93005; 99284; 96374; 36415; 82553; 82550; 85025; 80053; 84484; 73600; 71045; 93010; 29515; J3010

== ENCOUNTER 2018-05-13 09:09 | Emergency (ER) | payer MEDICARE ==
[2018-05-13] MEDS ORDERED: ACETAMINOPHEN 325 MG TABLET PO ONE (09:41)
--- NOTE | 2018-05-13 09:42 | ER Document Report ---
HPI - HPI Pain Level: 4 Notes: Patient is a 72-year-old female who presents to the ED complaining of right dorsal foot pain status post twist injury prior to arrival. Patient states that she twisted her foot this morning. Patient states that she has had swelling to the area since then. Patient states that after her foot twisted it did bring her to her knees, but did not hit her head or lose consciousness. Patient states that she has had a broken ankle on that side before. The pain does not radiate. Patient states that she was limping on her foot initially. Denies any drug allergies. No other concerns or complaints. Denies any headache, fever, head injury, neck pain, URI, sore throat, chest pain, palpitations, syncope, cough, shortness of breath, wheeze, dyspnea, abdominal pain, nausea/vomiting/diarrhea, urinary retention, dysuria, hematuria, numbness/ tingling, muscle paralysis/weakness, or rash. - ROS Systems Reviewed and Negative: Yes All other systems reviewed and negative Past Medical History - Social History Smoking Status: Never Smoker Family History: CAD - Past Medical History Cardiac Medical History: Reports: Hx Hypercholesterolemia, Hx Hypertension Denies: Hx Coronary Artery Disease, Hx Heart Attack Pulmonary Medical History: Denies: Hx Asthma, Hx Bronchitis, Hx COPD, Hx Pneumonia Neurological Medical History: Denies: Hx Cerebrovascular Accident, Hx Seizures Renal/ Medical History: Denies: Hx Peritoneal Dialysis GI Medical History: Denies: Hx Hepatitis, Hx Hiatal Hernia, Hx Ulcer Musculoskeltal Medical History: Denies Hx Arthritis, Reports Hx Musculoskeletal Trauma - right arm Psychiatric Medical History: Reports: Hx Anxiety, Hx Depression Infectious Medical History: Denies: Hx Hepatitis Past Surgical History: Reports: Hx Adenoidectomy, Hx Hysterectomy, Hx Oral Surgery - wisdom teeth, Hx Orthopedic Surgery - left shoulder, Hx Tonsillectomy , Other - eye. Denies: Hx Mastectomy, Hx Open Heart Surgery, Hx Pacemaker - Immunizations Hx Diphtheria, Pertussis, Tetanus Vaccination: Yes Vertical Provider Document - CONSTITUTIONAL Agree With Documented VS: Yes Notes: PHYSICAL EXAMINATION: GENERAL: Well-appearing, well-nourished and in no acute distress. LUNGS: Breath sounds clear to auscultation bilaterally and equal. No wheezes rales or rhonchi. HEART: Regular rate and rhythm without murmurs, rubs, gallops. Musculoskeletal: Rt foot/ankle: FROM to passive/active. Strength 5+/5. N/V intact distal. + tenderness to the dorsal distal foot b/w metatarsals #2-4 with associated swelling noted. No other bony tenderness of the foot/ankle. Achilles intact. Extremities: No cyanosis, clubbing, or edema b/l. Peripheral pulses 2+. Capillary refill less than 3 seconds. NEUROLOGICAL: Normal speech, limping gait. Normal sensory, motor exams PSYCH: Normal mood, normal affect. SKIN: Warm, Dry, normal turgor, no rashes or lesions noted. - INFECTION CONTROL TRAVEL OUTSIDE OF THE [place] IN LAST 30 DAYS: No Course - Re-evaluation Re-evalutation: 05/13/18 10:30 Patient is an afebrile, well-hydrated, 72 presents to the ED with right foot pain and fractures to metatarsals #1-4 proximally w/o displacement. Vitals are acceptable without any significant tachycardia, tachypnea, or hypoxia. PE is otherwise unremarkable for any neurovascular compromise, obvious tendon/ ligament rupture, open fracture, septic joint. See XR result. Pt declined crutches as she has a rolling walker at home. Posterior ankle splint applied today. Tylenol given p.o. today. No other labs or imaging warranted at this time based on H&P. Conservative measures for symptoms. norco dispense pack given. Recheck with your PCM in 3-5 days. Schedule an appointment with ortho. Return to the ED with any worsening/concerning symptoms otherwise as reviewed in discharge. Patient is in agreement. - Vital Signs Vital signs: Temp Pulse Resp BP Pulse Ox 97.5 F 87 20 118/71 96 05/13/18 09:20 05/13/18 09:20 05/13/18 09:20 05/13/18 09:20 05/13/18 09:20 Procedures - Immobilization Right Foot Time completed: 10:30 Pre-Proc Neuro Vasc Exam: Normal Immobilizer type: Posterior ankle Performed by: PCT Post-Proc Neuro Vasc Exam: Normal, Unchanged from pre-exam Discharge - Discharge Clinical Impression: Metatarsal fracture Qualifiers: Encounter type: initial encounter Metatarsal bone: unspecified metatarsal Fracture type: closed Fracture alignment: nondisplaced Laterality: right Qualified Code(s): S92.301A - Fracture of unspecified metatarsal bone(s), right foot, initial encounter for closed fracture Condition: Stable Disposition: HOME, SELF-CARE Instructions: Foot Fracture ([facility]), Splint Precautions ([facility]) Additional Instructions: Rest, Ice, Compression, Elevation Use splint/rolling walker as directed Tylenol/ibuprofen as needed F/u with your PCP in 3-5 days for a recheck Remain non-weightbearing until told otherwise by Orthopedics. Call orthopedics tomorrow morning to schedule an appointment for further evaluation and management* Return to the ED with any worsening symptoms and/or development of fever, headache, chest pain, palpitations, syncope, shortness of breath, trouble breathing, abdominal pain, n/v/d, muscle weakness/paralysis, numbness/tingling, swelling, redness, or other worsening symptoms that are concerning to you. Referrals: PRISCILA ADAMS MD [Primary Care Provider] - Follow up in 3-5 days [facility] [Provider Group] - Follow up in 3-5 days
--- NOTE | 2018-05-13 10:06 | RADIOLOGY REPORT (SQ) ---
EXAM DESCRIPTION: FOOT RIGHT COMPLETE COMPLETED DATE/TIME: 05/13/2018 9:44 am REASON FOR STUDY: severe foot pain fall, injury, pain COMPARISON: None. NUMBER OF VIEWS: Three views. TECHNIQUE: AP, lateral and oblique radiographic images acquired of the right foot. LIMITATIONS: None. FINDINGS: MINERALIZATION: Normal. BONES: Acute transverse nondisplaced fractures at the base right 1st 2nd 3rd and 4th metatarsals, non angulated nondisplaced. 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 No foreign body. OTHER: No other significant finding. IMPRESSION: Acute transverse nondisplaced fractures of the base right 1st through 4th metatarsals. Nonangulated, nondisplaced. Overlying soft tissue swelling TECHNICAL DOCUMENTATION: JOB ID: [id number] [employer]- All Rights Reserved Reading location - IP/workstation name: SERVICE DELIVERY MANAGEMENT [email or web address]
[2018-05-13] MEDS ORDERED: HYDROCODONE/ACETAMINOPHEN 5-325 MG (6 TAB/ER DISP) PO PRN (10:09)
[2018-05-13 10:41] VITALS: BP 122/72
== END 2018-05-13 10:38 | disposition home or self-care (01) ==
LOC: ER 09:09
PROC: 2W3QX1Z Immobilization of Right Lower Leg using Splint (ICD-10-PCS; principal; 2018-05-13)
DX: S92.301A Fracture of unspecified metatarsal bone(s), right foot, initial encounter for closed fracture (principal); M79.671 Pain in right foot; M79.89 Other specified soft tissue disorders; X50.1XXA Overexertion from prolonged static or awkward postures, initial encounter; I10 Essential (primary) hypertension
CPT/HCPCS: 99283; 73630; 29515; A9270 ×2

== ENCOUNTER → 2018-05-21 | Outpatient (CLI) | payer MEDICARE ==
--- NOTE | 2018-05-21 15:47 | WOMENS IMAGING REPORT ---
EXAM DESCRIPTION: BONE DENSITY HIP/SPINE COMPLETED DATE/TIME: 05/21/2018 2:15 pm REASON FOR STUDY: BONE DENSITY/M89.9 M89.9 DISORDER OF BONE, UNSPECIFIED COMPARISON: None. TECHNIQUE: Dual-Energy X-ray Absorptiometry (DEXA) of the AP Spine and Hip. LIMITATIONS: None. FINDINGS: LUMBAR SPINE: The bone mineral density (BMD) measured from L1-L4 in the AP projection correlates with a T-score of -1.6, which is osteopenia as defined by the World Health Organization. HIP: The bone mineral density (BMD) measured in the left hip correlates with a T-score of -2.2 in the femo ral neck, which is osteopenia as defined by the World Health Organization. IMPRESSION: 1. LUMBAR SPINE: Osteopenia. 2. HIP: Osteopenia. COMMENT: The patient's 10 year risk of major osteoporotic fracture is 14%. Her 10 year risk of hip fracture is 5.7%. The World Health Organization defines low BMD as follows: T-score: Normal: Greater than -1.0 Osteopenia: Between -1.0 and -2.5 Osteoporosis: Less than -2.5 without fractures Established osteoporosis: Less than -2.5 with fractures In general, you may wish to consider: Diagnosis Treatment Follow-up DEXA Normal BMD Prevention 2-3 years Osteopenia Prevention/Therapy 1-2 years Osteoporosis Therapy Yearly TECHNICAL DOCUMENTATION: JOB ID: [id number]- All Rights Reserved Reading location - IP/workstation name: [email or web address]
== END ==
LOC: WI 13:07
PROVIDERS: ATTEND Orthopaedic Surgery
DX: M85.88 Other specified disorders of bone density and structure, other site (principal)
CPT/HCPCS: 77080